=== PATIENT | female | born 1985 | race Two or more races ===

== ENCOUNTER 2020-05-01 09:48 | Emergency (ER) | payer MEDICAID ==
[~2020-05-01] VITALS: Ht 160 cm; Wt 66.0 kg
[~2020-05-01 09:48] MED LIST: BUPR1FIL7 SL; LEVE750T66 PO; PALI156D IM; PALI3TAB5 PO; PARO10TA4 PO; ZOLP5TAB8 PO
[2020-05-01] MEDS ORDERED: LORazepam 1 MG tablet PO ONE (10:50)
[2020-05-01] MEDS ORDERED: BUSP10TA11 PO (10:56)
[2020-05-01 11:00] LABS: CLARITY,URINE CLEAR (Clear); COLOR,URINE YELLOW (Yellow); GLUCOSE, URINE NEGATIVE (Neg); KETONES,URINE 15 mg/dl (Neg); LEUKOCYTE ESTERASE ,URINE NEGATIVE (Neg); NITRITES, URINE NEGATIVE (Neg); OCCULT BLOOD,URINE TRACE-INTACT (Neg); PROTEIN,URINE NEGATIVE (Neg); UA COLLECTION TYPE CLN CATCH MIDSTREAM; URINE HCG NEGATIVE (NEG); UROBILINOGEN,URINE 0.2 E.U/dL (0.2-1.0)
[2020-05-01 11:05] LABS: BACTERIA,URINE FEW /HPF (Neg); MUCUS STRANDS FEW /LPF (Neg); RBC,URINE 0-2 /HPF (0-2); SQUAMOUS EPITHELIAL CELL,UR FEW /LPF (FEW); WBC,URINE 0-4 /HPF (0-4)
[2020-05-01 11:12] LABS: URINE AMPHETAMINE SCREEN NEGATIVE (Neg); URINE BARBITUATE SCREEN NEGATIVE (Neg); URINE BENZODIAZEPINES SCREEN NEGATIVE (Neg); URINE CANNABINOID SCREEN NEGATIVE (Neg); URINE COCAINE SCREEN NEGATIVE (Neg); URINE METHADONE SCREEN NEGATIVE (Neg); URINE OPIATE SCREEN NEGATIVE (Neg); URINE PHENCYCLIDINE SCREEN NEGATIVE (Neg)
[2020-05-01 11:16] LABS: BASOPHILS % (AUTO) 0.2 % (0-1); EOSINOPHILS % (AUTO) 0 % (0-6); HEMATOCRIT 38.7 % (35.0-45.0); HEMOGLOBIN 12.9 g/dl (12.0-16.0); LYMPHOCYTES # (AUTO) 0.6 X10'3 (1.1-4.8); LYMPHOCYTES % (AUTO) 8.5 % (21-51); MEAN CORPUSCULAR HEMOGLOBIN 29.6 PG (27.0-31.0); MEAN CORPUSCULAR HGB CONC 33.4 g/dL (33.0-36.5); MEAN CORPUSCULAR VOLUME 88.6 FL (78-98); MEAN PLATELET VOLUME 7.1 FL (7.4-10.4); MONOCYTES # (AUTO) 0.4 X10'3 (0-0.9); MONOCYTES % (AUTO) 5.9 % (2-12); NEUTROPHILS # (AUTO) 6.1 X10'3 (1.8-7.7); NEUTROPHILS % (AUTO) 85.4 % (42-75); PLATELET COUNT 293 X10'3 (140-440); RED BLOOD COUNT 4.37 X10'6 (4.20-5.60); RED CELL DISTRIBUTION WIDTH 13.9 % (11.5-14.5); WHITE BLOOD COUNT 7.1 X10'3 (4.5-11.0)
[2020-05-01 11:30] LABS: ALANINE AMINOTRANSFERASE 24 U/L (12-78); ALBUMIN 3.9 G/DL (3.4-5.0); ALKALINE PHOSPHATASE 90 IU/L (46-116); ANION GAP 7 (8-16); ASPARTATE AMINO TRANSFERASE 27 U/L (10-37); BILIRUBIN,TOTAL 0.5 MG/DL (0.1-1.0); BLOOD UREA NITROGEN 8 MG/DL (7-18); BUN/CREATININE RATIO 10.1 (6.6-38.0); CALCIUM 9.1 MG/DL (8.5-10.1); CHLORIDE 105 MMOL/L (99-107); CREATININE 0.79 MG/DL (0.40-0.90); ETHANOL < 0.010 GM/DL (0.0-0.010); GLUCOSE 178 MG/DL (70-104); POTASSIUM 3.5 MMOL/L (3.5-5.1); SODIUM 141 MMOL/L (135-145); TOTAL PROTEIN 7.7 G/DL (6.4-8.2); eGFR 83 ML/MIN
--- NOTE | 2020-05-01 14:23 | NUR ---
PT LAYING IN BED NO DISTRESS NOTED WILL CONTINUE TO MONITOR.
--- NOTE | 2020-05-01 14:27 | NUR ---
NOT WANTING TO SPEAK TO FAMILY AT THIS TIME
--- NOTE | 2020-05-01 16:15 | NUR ---
Patient arrived to this unit ambulating self accompanied by unit tech. She endorses SI and AH. She denies HI. All items inventoried and in locked room for safe keeping. Patient states she feels anxious. MD notified. Patient states she has SI due to the recent of her aunt. She reports she wants to buy street drugs and OD.
[2020-05-01] MEDS ORDERED: hydrOXYzine 25 MG tablet PO ONE (16:55)
[2020-05-01 17:20] VITALS: BP 109/55
[2020-05-01] MEDS ORDERED: PALI6TAB6 PO (18:46)
[2020-05-01] MEDS ORDERED: PARO20TA6 PO (18:46)
[2020-05-01] MEDS ORDERED: zolpidem 5mg tablet PO PRN (19:00)
[2020-05-01] MEDS ORDERED: levetiracetam 250mg tablet PO SCH (20:00)
[2020-05-01] MEDS ORDERED: busPIRone 15mg tablet PO SCH (20:00)
[2020-05-01] MEDS ORDERED: buprenorphine/naloxone 2-0.5mg sublingual tablet SL SCH (20:00)
[2020-05-01] MEDS ORDERED: PALIPERIDONE 3 MG TAB.ER.24 PO SCH (21:00)
[2020-05-02] MEDS ORDERED: PARoxetine 20mg tablet PO SCH (08:00)
[2020-05-06] MEDS ORDERED: paliperidone palmitate 156 mg/ml inj.**IM only IM SCH (08:00)
== END 2020-05-01 22:01 ==
LOC: ER 09:48
DX: F31.9 Bipolar disorder, unspecified (principal); R45.851 Suicidal ideations; F41.9 Anxiety disorder, unspecified; Z72.89 Other problems related to lifestyle; Z79.899 Other long term (current) drug therapy
CPT/HCPCS: 36415; 80053; 80305; 80320; 81001; 81025; 85025; 99285; Q0177

== ENCOUNTER 2024-04-01 12:26 | Emergency (ER) | payer MEDICAID ==
[~2024-04-01] VITALS: Ht 160 cm; Wt 115.2 kg
[~2024-04-01 12:26] MED LIST changes: +ATI1T PO; +BUS15T PO; +HYDR-3686 PO; +NICO-668 BC; -PALI156D IM; -PALI3TAB5 PO; +PALI9TAB4 PO; -PARO10TA4 PO; +PARO20TA6 PO
[2024-04-01 12:34] VITALS: TEMP 98
[2024-04-01 13:57] LABS: BASOPHILS % (AUTO) 0.2 % (0-1); EOSINOPHILS % (AUTO) 0 % (0-6); LYMPHOCYTES # (AUTO) 1.5 X10'3 (1.1-4.8); LYMPHOCYTES % (AUTO) 17.6 % (21-51); MEAN PLATELET VOLUME 6.9 FL (7.4-10.4); MONOCYTES # (AUTO) 0.7 X10'3 (0-0.9); MONOCYTES % (AUTO) 7.8 % (2-12); NEUTROPHILS # (AUTO) 6.4 X10'3 (1.8-7.7); NEUTROPHILS % (AUTO) 74.4 % (42-75); PLATELET COUNT 284 X10'3 (140-440); WHITE BLOOD COUNT 8.7 X10'3 (4.5-11.0)
[2024-04-01 14:10] LABS: ALANINE AMINOTRANSFERASE 25 U/L (12-78); ALBUMIN 3.5 G/DL (3.4-5.0); ALBUMIN/GLOBULIN RATIO 0.7 (1.1-1.5); ALKALINE PHOSPHATASE 123 IU/L (46-116); ANION GAP 8 (8-16); ASPARTATE AMINO TRANSFERASE 23 U/L (10-37); BILIRUBIN,TOTAL 0.4 MG/DL (0.1-1.0); BLOOD UREA NITROGEN 8 MG/DL (7-18); BUN/CREATININE RATIO 7.6 (10.0-20.0); CALCIUM 9.2 MG/DL (8.5-10.1); CHLORIDE 100 MMOL/L (99-107); CREATININE 1.05 MG/DL (0.40-0.90); GLUCOSE 93 MG/DL (70-104); LIPASE 14 U/L (16-77); POTASSIUM 3.9 MMOL/L (3.5-5.1); SODIUM 136 MMOL/L (135-145); TOTAL CARBON DIOXIDE 28.2 MMOL/L (24-32); TOTAL PROTEIN 8.6 G/DL (6.4-8.2); eCRCL 60 ML/MIN; eGFR 59 ML/MIN
[2024-04-01] MEDS ORDERED: diphenhydrAMINE 50 mg/ml inj IV ONE (14:35)
[2024-04-01] MEDS ORDERED: LORazepam 2 mg/ml vial IV ONE (14:35)
[2024-04-01] MEDS ORDERED: proCHLORperazine 10 MG/2 ml inj IM ONE (14:35)
[2024-04-01] MEDS ORDERED: proCHLORperazine 10 MG/2 ml inj IV ONE (14:45)
[2024-04-01 14:52] LABS: HEMATOCRIT 35.2 % (35.0-45.0); MEAN CORPUSCULAR HEMOGLOBIN 22.1 PG (27.0-31.0); MEAN CORPUSCULAR VOLUME 70.8 FL (78-98); RED BLOOD COUNT 4.98 X10'6 (4.20-5.60)
[2024-04-01 14:53] LABS: MEAN CORPUSCULAR HGB CONC 31.2 g/dL (33.0-36.5); RED CELL DISTRIBUTION WIDTH 19.8 % (11.5-14.5)
[2024-04-01 14:59] LABS: ETHANOL < 10 MG/DL (<10)
[2024-04-01 15:14] VITALS: BP 152/86; PULSE 86; O2SAT 97
[2024-04-01 15:48] LABS: BILIRUBIN,URINE NEGATIVE (Neg); CLARITY,URINE SLIGHTLY CLOUDY (Clear); COLOR,URINE YELLOW (Yellow); GLUCOSE, URINE NEGATIVE (Neg); KETONES,URINE NEGATIVE (Neg); LEUKOCYTE ESTERASE ,URINE NEGATIVE (Neg); NITRITES, URINE NEGATIVE (Neg); OCCULT BLOOD,URINE NEGATIVE (Neg); PH,URINE 7.5 (4.8-8.0); PROTEIN,URINE NEGATIVE (Neg); URINE HCG NEGATIVE (NEG)
[2024-04-01 15:50] LABS: URINE AMPHETAMINE SCREEN NEGATIVE (Neg); URINE BARBITUATE SCREEN NEGATIVE (Neg); URINE BENZODIAZEPINES SCREEN NEGATIVE (Neg); URINE CANNABINOID SCREEN NEGATIVE (Neg); URINE COCAINE SCREEN NEGATIVE (Neg); URINE METHADONE SCREEN POSITIVE (Neg); URINE PHENCYCLIDINE SCREEN NEGATIVE (Neg)
[2024-04-01] MEDS: normal saline 1000ML IV soln IVB ONE (16:06)
[2024-04-01] MEDS ORDERED: diazepam inj 5 MG/ML inj. IV ONE (16:10)
[2024-04-01 16:12] LABS: UA COLLECTION TYPE CLN CATCH MIDSTREAM
[2024-04-01] MEDS ORDERED: PANT-47 PO (16:34)
[2024-04-01] MEDS ORDERED: THIA50TA10 PO (16:35)
[2024-04-01] MEDS ORDERED: FOLI1TAB27 PO (16:35)
[2024-04-01] MEDS ORDERED: CHLO25CA10 PO (16:35)
[2024-04-01] MEDS ORDERED: MECO10005 PO (16:35)
[2024-04-01 16:44] VITALS: RESP 18
[2024-04-01] MEDS: ketorolac trometh. 30mg/ml inj. IV ONE (16:44)
[2024-04-01 16:54] LABS: BACTERIA,URINE NONE SEEN /HPF (Neg); RBC,URINE NONE SEEN /HPF (0-2); SQUAMOUS EPITHELIAL CELL,UR NONE SEEN /LPF (FEW); WBC,URINE 0-4 /HPF (0-4)
== END 2024-04-01 16:51 | disposition home or self-care (01) ==
LOC: ER 12:27
DX: R10.32 Left lower quadrant pain (principal); R11.10 Vomiting, unspecified; F41.9 Anxiety disorder, unspecified; F32.A Depression, unspecified
CPT/HCPCS: 36415; 76705; 80053; 80305; 80320; 81001; 81025; 83690; 85025; 96361; 96374; 99285; J1885; J7030